=== PATIENT | male | born 1930 | race Caucasian/White ===

== ENCOUNTER 2016-07-02 21:56 | Observation (INO) | payer MEDICARE, BC ==
--- NOTE | ~2016-07-02 | DS ---
Discharge Summary [facility] [address] [place]. [address] NAME: KANG HUBBARD : [birth year] STATUS : DIS IN PAT#: [id number] AGE: 86 ADM/REG DATE : 07/03/16 MR#: [id number] REPORT SERV DATE: 07/05/16 DICTATED BY: GHADA RAY DATE: 07/04/16 REPORT STATUS : Draft TRANSCRIBED BY: MODL DATE: 07/04/16 ADMISSION DATE: 07/03/2016 DISCHARGE DATE: 07/04/2016 HISTORY OF PRESENT ILLNESS: The patient is an 86-year-old male, with a history of hypertension and CKD who presented to the hospital with complaints of abdominal fullness, nausea, and vomiting. For further details, please refer to H and P dictated by Dr. Juan C Mcknight on 07/03/2016. HOSPITAL COURSE: Upon presentation to the hospital, the patient was admitted under Hospitalist Service. Empirically started on Levaquin and Flagyl given his history of recent diverticulitis. The patient continued to complain of abdominal fullness. CT imaging obtained did not note any significant amount of feces in the colon. However, given the patient's request, the patient was given an enema which significantly improved his symptoms. He has remained hemodynamically stable. Given resolution of his complaint this morning, the patient will be discharged to home. Of note, his blood pressure was noted to be severely elevated prompting an addition of amlodipine 5 mg to his home medications. PLAN: Given resolution of presenting complaints, his hemodynamics stability, the patient will be discharged to home today. Plan has been discussed with the patient, who voices understanding and is agreeable with this plan. DISCHARGE DIAGNOSES: 1. Recurrent diverticulitis. 2. Constipation. 3. Acute kidney injury on chronic kidney disease stage 3. 4. Hypertension. DISCHARGE MEDICATIONS: All his home medications were continued as noted in the H and P, with the addition of amlodipine 5 mg p.o. daily. DISPOSITION: The patient will be discharged to home. ACTIVITY: As tolerated. DIET: As tolerated. Greater than 30 minutes was spent providing counseling, medication reconciliation, dictation of note. DICTATED BY: MD ZHANG Abarca/BRE Discharge Summary [place] [id number] [place]. [address] NAME: KANG HUBBARD : [birth year] STATUS : DIS IN PAT#: [id number] AGE: 86 ADM/REG DATE : 07/03/16 MR#: [id number] REPORT SERV DATE: 07/05/16 DICTATED BY: GHADA RAY DATE: 07/04/16 REPORT STATUS : Draft TRANSCRIBED BY: MODL DATE: 07/04/16 Ghada Ray MD / [id number] CC: MD David Abarca M.D.
--- NOTE | ~2016-07-02 | HP ---
History And Physical [place] [id number] [facility] [place]. [address] NAME: KANG HUBBARD : [birth year] STATUS : ADM Kamala PAT#: [id number] AGE: 86 ADM/REG DATE : 07/02/16 MR#: [id number] REPORT SERV DATE: 07/03/16 DICTATED BY: NAVI HUNTER DATE: 07/03/16 REPORT STATUS : Draft TRANSCRIBED BY: MODL DATE: 07/03/16 DATE OF ADMISSION: 07/02/2016 CHIEF COMPLAINT: An 86-year-old male having difficult recovery from diverticulitis, now with nausea and weakness. HISTORY OF PRESENT ILLNESS: The patient's history was obtained through careful interview with the patient, daughter, granddaughter, coupled with review of [facility] and [facility] medical records. The patient was hospitalized from 06/26/2016 through 06/29/2016 for acute diverticulitis, but states when he was discharged home "I felt like hell when I went home and I still do." He feels that he has not really improved in terms of his abdominal pain and illness. In particular, he has felt very constipated. He has been trying laxatives including magnesium citrate and other remedies such as prune juice but has not had a bowel movement until the night coming into the hospital. He also states "I am as weak as water" and just feels fatigued and lightheaded and drained of energy. He describes persistent abdominal discomfort, diffuse pain, aching, bloating, discomfort, 8/10 severity. He has had nausea, but no vomiting. A very poor appetite and poor oral intake. No fevers or chills. 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 REVIEW OF SYSTEMS: Otherwise, a 14-point review of systems was obtained was negative. PAST MEDICAL HISTORY: 1. Coronary artery disease, status post CABG. 2. Peripheral arterial disease with history of stent placement and femoral popliteal bypass surgery. 3. Chronic kidney disease, unknown baseline creatinine, followed by Dr. Marquis Ellsworth. 4. Peptic ulcer disease, seen by Dr. Alec Ellsworth. 5. Diabetes. 6. Diverticulitis. 7. 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 8. Prostate cancer 20+ years ago, history of Lupron. 9. Esophageal stricture. 10.COPD. History And Physical [address] [place]. [address] NAME: KANG HUBBARD : [birth year] STATUS : ADM Kamala PAT#: [id number] AGE: 86 ADM/REG DATE : 07/02/16 MR#: [id number] REPORT SERV DATE: 07/03/16 DICTATED BY: NAVI HUNTER DATE: 07/03/16 REPORT STATUS : Draft TRANSCRIBED BY: BRE DATE: 07/03/16 PAST SURGICAL HISTORY: 1. CABG in 1995 with a redo in 2003. 2. Femoral-popliteal bypass. 3. Right carotid endarterectomy. 4. Cholecystectomy. 5. Appendectomy. 6. Parathyroidectomy. 7. Prostatectomy. 8. Thoracotomy. 9. Hernia repair. ALLERGIES: MORPHINE. SOCIAL HISTORY: Quit smoking more than 20 years ago. Rare alcohol use. He is but his is described as "invalid," dependent for her care. He has had significant asbestos exposure. Used to work as a boiler installer and in combustion engineering. FAMILY HISTORY: Sister with lung cancer. Mother at 90 years of age. Father at 73 years of age. Two brothers with heart disease. Brother with stroke. CURRENT MEDICATIONS: Include Xanax 1 mg p.o. b.i.d., aspirin 81 mg p.o. daily, Lipitor 40 mg on Wednesday and Wednesday, Plavix 75 mg p.o. daily, vitamin B12, flutamide 125 mg p.o. t.i.d., Lasix 20 mg p.o. b.i.d., Levemir 20 units subcutaneous twice a day, Levaquin 750 mg p.o. daily, Flagyl 500 mg p.o. t.i.d., lisinopril 5 mg p.o. b.i.d., melatonin 10 mg at bedtime, Protonix 40 mg p.o. b.i.d., and potassium 10 mEq p.o. daily. PHYSICAL EXAMINATION: VITAL SIGNS: Temperature 97.8, pulse 77, blood pressure 144/68, respiratory rate 16, and O2 saturation 95% on room air. GENERAL: A pleasant, cooperative male. No evidence of acute distress, just appears very ill. HEENT: Pupils equal, round, and reactive to light. No conjunctival pallor. No scleral icterus. Nares are patent. Oropharynx is clear of obstruction. Very dry mucous membranes with cracking of the lips and the tongue. NECK: Trachea midline. No thyromegaly. LYMPH: No cervical lymphadenopathy. No supraclavicular lymphadenopathy. No inguinal lymphadenopathy. RESPIRATORY: Clear to auscultation at bases. No wheezes, rales, or rhonchi. Normal respiratory effort. CARDIOVASCULAR: Regular rate and rhythm. No murmurs, rubs, or gallops. No extremity edema is appreciated. ABDOMEN: Diffuse tenderness by exam, no focal tenderness though. No rebound, no guarding, nondistended. No hepatosplenomegaly. DERMATOLOGICAL: Warm and dry extremities. No cyanosis. No pallor. The patient has a tenting of the skin to suggest dehydration. PSYCHIATRIC: A flat affect with good mood. Alert and oriented x3. History And Physical [address] [address] NAME: KANG HUBBARD : [birth year] STATUS : ADM Kamala PAT#: [id number] AGE: 86 ADM/REG DATE : 07/02/16 MR#: [id number] REPORT SERV DATE: 07/03/16 DICTATED BY: NAVI HUNTER DATE: 07/03/16 REPORT STATUS : Draft TRANSCRIBED BY: MODL DATE: 07/03/16 LABORATORY DATA: White blood cell count 12.8, hemoglobin 11, hematocrit 32, and platelets 385. Sodium 138, potassium 4.5, chloride 104, bicarb 29, BUN 21, creatinine 2.13, glucose 128, lipase 162. C. diff negative. STUDIES: CT scan of the abdomen and pelvis shows no acute intraabdominal process at this time. No complications from recent diverticulitis. ASSESSMENT AND PLAN: 1. Recovering diverticulitis. Continue IV Levaquin, IV Flagyl. Provide supportive care. 2. Acute kidney injury. Place on IV fluids. 3. Constipation. Try MiraLAX. KPL/MODL Navi Hunter M.D. / [id number] CC: MD David Abarca M.D. Robert Berglund, M.D.
[2016-07-02 21:25] LABS: BASOPHILS 0.7 %; BASOPHILS ABSOLUTE 0.09 10/3/uL (0.0-0.16); EOSINOPHILS 5.1 %; EOSINOPHILS ABSOLUTE 0.65 10/3/uL (0.0-0.53); HEMATOCRIT 32.3 % (40.0-51.0); HEMOGLOBIN 10.6 g/dL (13.6-17.8); IMMATURE GRANULOCYTES 3.1 %; LYMPHOCYTES 12.8 %; LYMPHOCYTES ABSOLUTE 1.63 10/3/uL (0.67-4.30); MANUAL DIFF NO %; MEAN CORPUS HGB CONC 32.8 g/dL (32.0-36.0); MEAN CORPUSCULAR HEMOGLOB 29.5 pg (26.0-34.0); MEAN PLATELET VOLUME 10.5 fL (9.2-13.0); MONOCYTES 10.3 %; MONOCYTES ABSOLUTE 1.32 10/3/uL (0.21-1.20); NEUTROPHILS ABSOLUTE 8.69 10/3/uL (2.02-8.40); PLATELET COUNT 385 10/3/uL (150-400); RBC DISTRIBUTION WIDTH 14.1 % (12.0-16.0); RED CELL COUNT 3.59 10/6/uL (4.7-6.1); WHITE BLOOD CELLS 12.8 10/3/uL (4.5-10.5)
[2016-07-02 21:26] LABS: ER CBC TAT 0 Hrs 21 Mins
[2016-07-02 21:27] LABS: A/G RATIO 1.1 (0.7-1.9); ALBUMIN 3.4 G/DL (3.5-5.0); ALKALINE PHOSPHATASE 69 U/L (45-117); BUN (BLOOD UREA NITROGEN) 21 MG/DL (6-23); CALCIUM, SERUM 8.6 MG/DL (8.5-10.4); CHLORIDE, SERUM 104 MMOL/L (96-112); CO2 (CARBON DIOXIDE) 29 MMOL/L (24-34); CREATININE 2.13 MG/DL (0.70-1.30); DIRECT BILIRUBIN 0.1 MG/DL (0.0-0.4); GFR AFRICAN AMERICAN 31 ML/MIN (>=60); GFR NON AFRICAN AMERICAN 27 ML/MIN (>=60); GLOBULIN 3.1 G/DL (2.5-4.1); GLUCOSE, SERUM 128 MG/DL (60-99); INDIRECT BILIRUBIN(NOT ORDER) 0.7 MG/DL (0.1-0.9); POTASSIUM, SERUM 4.5 MMOL/L (3.5-5.3); SGOT(AST) 55 U/L (5-40); SGPT(ALT) 30 U/L (5-65); SODIUM, SERUM 138 MMOL/L (135-148); TOTAL BILIRUBIN 0.8 MG/DL (0-1.2); TOTAL PROTEIN 6.5 G/DL (6.0-8.5)
[2016-07-02 21:47] LABS: BAND NEUTROPHILS 5 %; EOSINOPHILS 8 %; EOSINOPHILS ABSOLUTE (CALC) 1.02 10/3/uL (0.0-0.53); ER DIFF TAT 0 Hrs 43 Mins; LYMPHOCYTES 12 %; LYMPHOCYTES ABSOLUTE (CALC) 1.54 10/3/uL (0.67-4.30); MONOCYTES 4 %; MONOCYTES ABSOLUTE (CALC) 0.51 10/3/uL (0.21-1.20); NEUTROPHILS ABSOLUTE (CALC) 9.73 10/3/uL (2.02-8.40); POLYCHROMASIA 1+ (2-5/OIF) (0-1/OIF); SEGMENTED NEUTROPHIL (0) 71 %; TOTAL NUCLEATED CELLS 100
[2016-07-02 21:48] LABS: PLATELET ESTIMATE ADQ (ADEQUATE)
[~2016-07-02 21:56] MED LIST: FLAG500TAB PO; FLUTAMIDE125 MG PO; K-TABS10 MEQ PO; L20 PO; LEVAQUIN750 MG PO; LIPITOR40 PO; PLAVIX PO; PRIN5 PO; PROTONIX PO; XANAX1 MG PO
[2016-07-02] MEDS ORDERED: MELATONIN10 M2 PO (21:57)
[2016-07-02] MEDS ORDERED: B12100T PO (21:57)
[2016-07-02] MEDS ORDERED: ASAB PO (21:57)
[2016-07-02] MEDS ORDERED: LEVEMFLXPN SC (21:58)
[2016-07-02 22:13] LABS: ASCORBIC ACID (UR NOT ORDER) NEG (NEG); BILIRUBIN, URINE NEGATIVE (NEG); ER URINALYSIS TAT 0 Hrs 11 Mins; KETONE, URINE NEGATIVE (NEG); LEUKOCYTE ESTERASE(NOT OR TRACE (NEG); NITRITE (URINE) NEG (NEG); WBC (NOT ORDERED) (RFLEX) 1 (0-5)
[2016-07-03 06:29] LABS: BASOPHILS 0.5 %; BASOPHILS ABSOLUTE 0.07 10/3/uL (0.0-0.16); HEMATOCRIT 33.6 % (40.0-51.0); HEMOGLOBIN 10.8 g/dL (13.6-17.8); IMMATURE GRANULOCYTES 2.6 %; IMMATURE GRANULOCYTES ABSOLUTE 0.39 10/3/uL (0.0-0.11); LYMPHOCYTES 11.3 %; LYMPHOCYTES ABSOLUTE 1.69 10/3/uL (0.67-4.30); MANUAL DIFF NO %; MEAN CORPUS HGB CONC 32.1 g/dL (32.0-36.0); MEAN CORPUSCULAR HEMOGLOB 29.3 pg (26.0-34.0); MEAN CORPUSCULAR VOLUME 91.3 fL (80-100); MEAN PLATELET VOLUME 10.2 fL (9.2-13.0); MONOCYTES 9.7 %; MONOCYTES ABSOLUTE 1.45 10/3/uL (0.21-1.20); NEUTROPHILS 71.9 %; NEUTROPHILS ABSOLUTE 10.82 10/3/uL (2.02-8.40); PLATELET COUNT 401 10/3/uL (150-400); RBC DISTRIBUTION WIDTH 13.9 % (12.0-16.0); RED CELL COUNT 3.68 10/6/uL (4.7-6.1)
[2016-07-03 06:35] LABS: INTERNATIONAL NORMAL RATI 1.3 UNITS (-); PARTIAL THROMBO TIME 36.9 SEC (22.5-37.2); PROTIME (NOT ORD) 15.8 SEC (12.0-14.5)
[2016-07-03 06:57] LABS: ALBUMIN 3.1 G/DL (3.5-5.0); ALKALINE PHOSPHATASE 64 U/L (45-117); BUN (BLOOD UREA NITROGEN) 18 MG/DL (6-23); CALCIUM, SERUM 8.4 MG/DL (8.5-10.4); CHLORIDE, SERUM 106 MMOL/L (96-112); CO2 (CARBON DIOXIDE) 25 MMOL/L (24-34); CREATININE 1.89 MG/DL (0.70-1.30); GFR AFRICAN AMERICAN 36 ML/MIN (>=60); GFR NON AFRICAN AMERICAN 31 ML/MIN (>=60); GLOBULIN 3.1 G/DL (2.5-4.1); GLUCOSE, SERUM 119 MG/DL (60-99); SGOT(AST) 44 U/L (5-40); SGPT(ALT) 28 U/L (5-65); SODIUM, SERUM 138 MMOL/L (135-148); TOTAL BILIRUBIN 0.4 MG/DL (0-1.2); TOTAL PROTEIN 6.2 G/DL (6.0-8.5)
[2016-07-04 04:47] LABS: BASOPHILS 0.4 %; BASOPHILS ABSOLUTE 0.05 10/3/uL (0.0-0.16); EOSINOPHILS 5.5 %; EOSINOPHILS ABSOLUTE 0.69 10/3/uL (0.0-0.53); HEMATOCRIT 33.1 % (40.0-51.0); HEMOGLOBIN 10.5 g/dL (13.6-17.8); IMMATURE GRANULOCYTES 2.8 %; IMMATURE GRANULOCYTES ABSOLUTE 0.35 10/3/uL (0.0-0.11); LYMPHOCYTES 14.6 %; LYMPHOCYTES ABSOLUTE 1.84 10/3/uL (0.67-4.30); MEAN CORPUS HGB CONC 31.7 g/dL (32.0-36.0); MEAN CORPUSCULAR HEMOGLOB 29.1 pg (26.0-34.0); MEAN CORPUSCULAR VOLUME 91.7 fL (80-100); MEAN PLATELET VOLUME 9.7 fL (9.2-13.0); MONOCYTES 9.7 %; MONOCYTES ABSOLUTE 1.22 10/3/uL (0.21-1.20); NEUTROPHILS ABSOLUTE 8.45 10/3/uL (2.02-8.40); PLATELET COUNT 386 10/3/uL (150-400); RBC DISTRIBUTION WIDTH 14.1 % (12.0-16.0); RED CELL COUNT 3.61 10/6/uL (4.7-6.1); WHITE BLOOD CELLS 12.6 10/3/uL (4.5-10.5)
[2016-07-04 04:48] LABS: MANUAL DIFF NO %
[2016-07-04 05:07] LABS: A/G RATIO 1.1 (0.7-1.9); ALBUMIN 3.1 G/DL (3.5-5.0); ALKALINE PHOSPHATASE 58 U/L (45-117); BUN (BLOOD UREA NITROGEN) 18 MG/DL (6-23); CALCIUM, SERUM 8.7 MG/DL (8.5-10.4); CHLORIDE, SERUM 109 MMOL/L (96-112); CO2 (CARBON DIOXIDE) 25 MMOL/L (24-34); CREATININE 1.98 MG/DL (0.70-1.30); GFR AFRICAN AMERICAN 34 ML/MIN (>=60); GFR NON AFRICAN AMERICAN 29 ML/MIN (>=60); GLOBULIN 2.7 G/DL (2.5-4.1); POTASSIUM, SERUM 4.1 MMOL/L (3.5-5.3); SGOT(AST) 37 U/L (5-40); SGPT(ALT) 26 U/L (5-65); SODIUM, SERUM 138 MMOL/L (135-148); TOTAL BILIRUBIN 0.4 MG/DL (0-1.2); TOTAL PROTEIN 5.8 G/DL (6.0-8.5)
[2016-07-04 05:09] LABS: GLUCOSE, SERUM 75 MG/DL (60-99)
[2016-07-04] MEDS ORDERED: NORV5 PO (11:12)
== END 2016-07-04 12:09 | disposition home or self-care (01) ==
LOC: ER 21:56 → 5SO 22:40
PROVIDERS: Hospitalist; Nurse Practitioner
DX: K57.92 Diverticulitis of intestine, part unspecified, without perforation or abscess without bleeding (principal); J44.9 Chronic obstructive pulmonary disease, unspecified; I25.10 Atherosclerotic heart disease of native coronary artery without angina pectoris; I12.9 Hypertensive chronic kidney disease with stage 1 through stage 4 chronic kidney disease, or unspecified chronic kidney disease; E11.22 Type 2 diabetes mellitus with diabetic chronic kidney disease; E78.00 Pure hypercholesterolemia, unspecified; N18.3 Chronic kidney disease, stage 3 (moderate); N17.9 Acute kidney failure, unspecified; Z87.891 Personal history of nicotine dependence; Z90.49 Acquired absence of other specified parts of digestive tract; Z95.5 Presence of coronary angioplasty implant and graft; Z87.11 Personal history of peptic ulcer disease; Z85.46 Personal history of malignant neoplasm of prostate; Z98.890 Other specified postprocedural states; Z88.5 Allergy status to narcotic agent; Z79.01 Long term (current) use of anticoagulants; Z79.82 Long term (current) use of aspirin; Z79.02 Long term (current) use of antithrombotics/antiplatelets; Z79.4 Long term (current) use of insulin; Z79.899 Other long term (current) drug therapy
CPT/HCPCS: 74176; 80053; 81001; 82248; 82962; 83690; 83735; 84443; 85025; 85610; 85730; 87045; 87046; 87046-59; 87328; 87329; 87493; 87493-59; 87899; 87899-59; 89055; 93005; 96372; 96374; 96375; 96376; 99285; A9270-GY; G0378; J0360; J1956; J2405